=== PATIENT | female | born 1965 ===

== ENCOUNTER 2024-06-02 05:34 | Day surgery (SDC) | payer OTHER ==
[~2024-06-02 05:34] MED LIST: AVALIDE 150MG; CRESTOR 20MG; CYMBALTA60 MG; DITROPAN; ESTAZOLAM1 MG; NEURONTIN300 MG; [UNRECOGNIZED DRUG - OTHER]
[2024-06-02] MEDS ORDERED: CEFAZOLIN SODIUM 1,000 MG VIAL IV ONE (09:45)
[2024-06-02] MEDS ORDERED: GENTAMICIN SULFATE 40 MG/ML VIAL IR ONE (09:45)
[2024-06-02] MEDS ORDERED: MACROBID 100 M100 MG PO (10:57)
[2024-06-02] MEDS ORDERED: TRAM1TAB98 PO (10:57)
== END 2024-06-02 16:35 | disposition home or self-care (01) ==
LOC: CIR.AMB 05:34
PROVIDERS: ATTEND Obstetrics & Gynecology Gynecology
DX: N39.3 Stress incontinence (female) (male) (principal); I10 Essential (primary) hypertension; E78.5 Hyperlipidemia, unspecified; F41.9 Anxiety disorder, unspecified
CPT/HCPCS: 57288; C1771